=== PATIENT | male | born 1955 | race Caucasian/White ===

== ENCOUNTER → 2022-04-19 | Outpatient (CLI) | payer OTHER ==
[~2022-04-19] VITALS: Ht 177 cm; Wt 136.0 kg
[~2022-04-19] MED LIST: ASPI-999 PO; CATHETER FLUSH 10 ML SYR IVP PRN; DOXA2TAB2 PO; FURO40TA4 PO; LISI40TA9 PO; METO100T6 PO; POTA-177 PO; REGADENOSON 0.4 MG/5 ML SYR (LEXISCAN) IV ONE; SPIR25TA5 PO
[2022-04-19 08:49] VITALS: BP 166/91
--- NOTE | 2022-04-20 11:45 | STRESS TEST ---
DATE OF SERVICE: 04/19/2022 RESTING AND POST REGADENOSON TECHNETIUM-99M TETROFOSMIN SPECT CT IMAGING ORDERING PHYSICIAN: Dr. Schmitz. CLINICAL DIAGNOSIS: Congestive heart failure. Baseline images were carried out after injection of 10.54 mCi of technetium-99m Tetrofosmin. This was followed by 0.4 mg regadenoson and 30.2 mCi of technetium-99m Tetrofosmin for stress imaging. Electrocardiogram showed sinus rhythm at baseline. It did not change significantly with the regadenoson infusion. The patient did not report any symptoms. Review of images at rest and following stress indicates a somewhat patchy tracer uptake without any distinct evidence of ischemia. Gated images show moderate cardiomegaly. Left ventricular end-diastolic volume is 154 mL. There appears to be mild global hypokinesis. Left ventricular ejection fraction is calculated to be 50%. CONCLUSIONS: 1. No distinct evidence of significant myocardial ischemia. 2. Moderate cardiomegaly. 3. Mild global hypokinesis with a calculated ejection fraction of 50%. Job ID: [id number] DocumentID: [id number] Dictated Date: 04/20/2022 07:46:48 In Room Dining Server Date: 04/20/2022 11:44:00 Dictated By: DEREK SCHMITZ MD; JOSLYN; FACP; FACC;
== END ==
LOC: CARD 07:25
PROVIDERS: ATTEND Internal Medicine Cardiovascular Disease
DX: I51.7 Cardiomegaly (principal); I51.89 Other ill-defined heart diseases
CPT/HCPCS: 78452; 93017; A9502

== ENCOUNTER → 2022-06-11 | Outpatient (CLI) | payer OTHER ==
[~2022-06-11] MED LIST changes: -CATHETER FLUSH 10 ML SYR IVP PRN; -REGADENOSON 0.4 MG/5 ML SYR (LEXISCAN) IV ONE
== END ==
LOC: CARD 08:28
PROVIDERS: ATTEND Internal Medicine Cardiovascular Disease
DX: I50.20 Unspecified systolic (congestive) heart failure (principal); I51.7 Cardiomegaly; Z95.2 Presence of prosthetic heart valve
CPT/HCPCS: 93306